=== PATIENT | male | born 1995 | race Caucasian/White ===

== ENCOUNTER 2018-07-10 12:15 | Emergency (ER) | payer BC, SELFPAY | END 2018-07-10 13:43 | disposition home or self-care (01) | LOC: ERS 12:15 | DX: S06.0X0A Concussion without loss of consciousness, initial encounter (principal); G93.0 Cerebral cysts; W22.8XXA Striking against or struck by other objects, initial encounter; Y93.23 Activity, snow (alpine) (downhill) skiing, snowboarding, sledding, tobogganing and snow tubing ==

== ENCOUNTER 2018-07-10 18:52 | Emergency (ER) | payer BC ==
[2018-07-10] MEDS ORDERED: Ondansetron PF 4 MG/2 ML Vial ONE (19:47)
[2018-07-10] MEDS ORDERED: diphenhydrAMINE 50 MG/ML VIAL ONE (20:08)
[2018-07-10] MEDS ORDERED: Fentanyl 100 MCG/2 ML VIAL ONE (20:08)
[2018-07-10] MEDS ORDERED: Metoclopramide HCl 10 MG/2 ML VIAL ONE (20:08)
[2018-07-10] MEDS ORDERED: Dexamethasone 10 MG/ML VIAL ONE (20:49)
[2018-07-10] MEDS ORDERED: Ketorolac Tromethamine 30 MG/ML VIAL ONE (20:49)
--- NOTE | 2018-07-10 20:59 | CT ---
CT OF BRAIN PERFORMED WITHOUT CONTRAST ENHANCEMENT: 07/10/18 HISTORY: Closed head injury while snowboarding. Photophobia and vomiting. There is a prominent cistern magna. It is possible that some of these changes are related to an arach noid cyst but this is not an acute process. The ventricles are normal in size. Sulci are normal in ap pearance. There is no hemorrhage or mass effect. Mastoid air cells and visualized sinuses are clear. IMPRESSION: No acute intracranial abnormality. POS: [facility]
== END 2018-07-10 23:00 | disposition home or self-care (01) ==
LOC: ERS 18:52
DX: S06.0X0A Concussion without loss of consciousness, initial encounter (principal); F17.210 Nicotine dependence, cigarettes, uncomplicated; W22.8XXA Striking against or struck by other objects, initial encounter; Y93.23 Activity, snow (alpine) (downhill) skiing, snowboarding, sledding, tobogganing and snow tubing
CPT/HCPCS: 70450; 93005; J1100; J1200; J1885; J2405; J2765; J3010

== ENCOUNTER 2018-07-11 05:54 | Inpatient (IN) | payer BC ==
[2018-07-11] MEDS ORDERED: Metoclopramide HCl 10 MG/2 ML VIAL ONE (06:27)
[2018-07-11] MEDS ORDERED: diphenhydrAMINE 50 MG/ML VIAL ONE (06:27)
[2018-07-11] MEDS ORDERED: Ondansetron PF 4 MG/2 ML Vial IVP PRN (07:28)
[2018-07-11] MEDS ORDERED: Ondansetron ODT 4 MG TAB SL PRN (07:28)
[2018-07-11] MEDS: Acetaminophen 325 MG TAB PO PRN ×2 (07:48→15:23)
[2018-07-11 07:54] VITALS: BMI 29.0
[2018-07-11 09:07] LABS: #Basophils 0.1 thou/uL (0.0-0.2); #Lymphocytes 1.5 thou/uL (1.20-3.40); #Monocytes 0.6 thou/uL (0.11-0.59); %Basophils 0.4 % (0.0-1.0); %Eosinophils 0.1 % (0.0-10.0); %Lymphocytes 11.1 % (21.0-51.0); %Monocytes 4.7 % (0.0-10.0); %Neutrophils 83.6 % (42.0-75.0); Hemoglobin 15.8 g/dL (14.0-18.0); Mean Corpuscular HGB CONC 32.4 g/dL (32.0-36.0); Mean Corpuscular Hemoglobin 29.2 pg (27.0-31.0); Mean Corpuscular Volume 90.2 fL (78.0-98.0); Mean Platelet Volume 6.8 fL (7.4-10.4); Platelet Count 281 thou/uL (130-400); RBC Distribution Width 11.7 % (11.5-14.5); Red Blood Cell (RBC) Count 5.41 mill/uL (4.70-6.10); White Blood Cell (WBC) Count 13.1 thou/uL (4.8-10.8)
[2018-07-11 09:14] LABS: ALT (SGPT) 27 U/L (8-55); AST (SGOT) 15 U/L (5-34); Albumin 4.2 g/dL (3.5-5.0); Alkaline Phosphatase 91 U/L (40-150); Anion Gap 14 mmol/L (10-20); BUN (Urea Nitrogen) 23 mg/dL (8.9-20.6); Bilirubin, Total 0.4 mg/dL (0.2-1.2); Calc. Creatinine Clearance 157 mL/min (70-130); Calcium 9.2 mg/dL (7.8-10.44); Carbon Dioxide 20 mmol/L (22-29); Chloride 109 mmol/L (98-107); Estimated GFR-MDRD Greater than 90; Globulin 2.8 g/dL (2.4-3.5); Glucose 98 mg/dL (70-105); Potassium 4.6 mmol/L (3.5-5.1); Sodium 138 mmol/L (136-145)
[2018-07-11] MEDS: Ketorolac Tromethamine 30 MG/ML VIAL IVP PRN (10:06)
[2018-07-11] MEDS: Sodium Chloride 0.9% 1,000 ML IV SCH ×3 (10:08→20:18)
[2018-07-11] MEDS ORDERED: tiZANidine HCl 4 MG TAB PO SCH (10:45)
[2018-07-11 12:42] LABS: Amphetamine Not Detected (NotDetected); Barbiturates Screen Not Detected (NotDetected); Benzodiazepine Screen Not Detected (NotDetected); Cocaine Metabolite Screen Not Detected (NotDetected); Medtox Control Line Valid? VALID (VALID); Medtox Reader # READER 4; Methadone Not Detected (NotDetected); Methamphetamine Not Detected (NotDetected); Opiate Screen Not Detected (NotDetected); Oxycodone Screen Not Detected (NotDetected); Phencyclidine (PCP) Not Detected (NotDetected); THC/Cannabinoid Screen Detected (NotDetected); Tricyclic Screen Not Detected (NotDetected)
--- NOTE | 2018-07-11 14:41 | MRI ---
MRI BRAIN WITHOUT CONTRAST: HISTORY: Postconcussive headache, intractable. CORRELATION: CT scan of the previous night. FINDINGS: No restricted diffusion is seen. No evidence of infarct, hemorrhage, or midline shift is seen. Ther e is suggestion of an arachnoid cyst in the posterior fossa with mild mass effect in the left cerebel lar hemisphere, less likely monet cisterna magna. The ventricular size is normal, and the basilar cis terns are patent. The visualized paranasal sinuses and mastoid air cells are well aerated. No tonsi llar herniation is seen. IMPRESSION: 1. No evidence of acute intracranial process. 2. Arachnoid cyst in the posterior fossa (less likely monet cisterna magna). POS: [facility]
--- NOTE | 2018-07-11 14:42 | MRI ---
MRI CERVICAL SPINE WITHOUT CONTRAST: HISTORY: Headache, neck pain. Two previous snowboarding injuries. COMPARISON: None. FINDINGS: There is T1 marrow signal hypointensity of the cervical vertebrae. Correlate for anemia or marrow in filtrative process. No significant STIR hyperintensity. Cervical spine vertebral body height is seb ntained. There is no fracture. Visualized brain parenchyma, cervicomedullary junction, cervical cord, and the upper thoracic cord medina ve a normal size and signal intensity. There is a T2 hyperintense lesion in the left posterior fossa. Refer to separate brain MRI report fo r further detail. C2-C3: No significant central canal stenosis or foraminal narrowing. C3-C4: No significant central canal stenosis or foraminal narrowing. C4-C5: No significant central canal stenosis or foraminal narrowing. C5-C6: No significant central canal stenosis or foraminal narrowing. C6-C7: No significant central canal stenosis or foraminal narrowing. C7-T1: No significant central canal stenosis or foraminal narrowing. IMPRESSION: 1. No significant central canal stenosis or foraminal narrowing. 2. T1 marrow signal hypointensity due to anemia or marrow infiltrative process. Correlate clinicall y. There is no corresponding STIR hyperintensity. POS: [facility]
--- NOTE | 2018-07-11 15:59 | PDOC.EVN ---
Event Note - Event Note Event Note: Pt seen and examined and discussed w [facility] Ms Ngozi Plan discussed w family as well MRI results shows arachnoid cyst and T1 signal hypointensity. discussed w NS and advised to get MRV .ordered as advised received call from [place] [facility] about abnl CSF Cx .Showing GN bacilli Pantoea agglomerans. will start on Meropenam.Will consult ID Pt also Bradycardia.ECHO ordered. Will follow.
[2018-07-11] MEDS ORDERED: Nortriptyline HCl 25 MG CAP PO SCH (16:00)
[2018-07-11] MEDS: MEROPENEM 1 GM/50 ML 1 GM in Premix Bag 1 BAG IVPB SCH (16:41)
--- NOTE | 2018-07-11 17:32 | MRI ---
MR VENOGRAM 07/11/18 HISTORY: Abnormal MRI. COMPARISON: None. CORRELATION: Brain MRI 07/11/18. TECHNIQUE: Coronal 2D [id number] imaging is submitted for interpretation. Maximum intensity projection image s are submitted for interpretation. FINDINGS: An appropriate flow related signal in the sagittal sinus, internal cerebral veins, straight sinus, ve in of Kelvin, bilateral transverse sinuses and sigmoid sinuses. IMPRESSION: No MR evidence of internal cranial venous sinus thrombosis. POS: [facility]
[2018-07-11] MEDS ORDERED: Acetaminophen/Codeine 30-300mg Tablet PO PRN (20:05)
[2018-07-11] MEDS: tiZANidine HCl 4 MG TAB PO SCH (20:16)
[2018-07-11] MEDS: Acetaminophen/Codeine 30-300mg Tablet PO PRN (20:16)
[2018-07-12] MEDS: MEROPENEM 1 GM/50 ML 1 GM in Premix Bag 1 BAG IVPB SCH (00:08)
[2018-07-12] MEDS: Ketorolac Tromethamine 30 MG/ML VIAL IVP PRN ×2 (03:30→13:12)
[2018-07-12] MEDS: Sodium Chloride 0.9% 1,000 ML IV SCH ×2 (04:07→13:20)
[2018-07-12 04:32] VITALS: TEMP 98
[2018-07-12 06:43] LABS: #Basophils 0.1 thou/uL (0.0-0.2); #Eosinphils 0.1 thou/uL (0.0-0.7); #Lymphocytes 3.2 thou/uL (1.20-3.40); #Monocytes 0.6 thou/uL (0.11-0.59); #Neutrophils 4.5 thou/uL (1.40-6.50); %Basophils 0.6 % (0.0-1.0); %Eosinophils 0.7 % (0.0-10.0); %Lymphocytes 37.9 % (21.0-51.0); %Monocytes 7.2 % (0.0-10.0); %Neutrophils 53.6 % (42.0-75.0); Hemoglobin 15.6 g/dL (14.0-18.0); Mean Corpuscular HGB CONC 32.8 g/dL (32.0-36.0); Mean Corpuscular Hemoglobin 29.8 pg (27.0-31.0); Mean Corpuscular Volume 90.9 fL (78.0-98.0); Mean Platelet Volume 6.2 fL (7.4-10.4); Platelet Count 246 thou/uL (130-400); RBC Distribution Width 11.9 % (11.5-14.5); Red Blood Cell (RBC) Count 5.22 mill/uL (4.70-6.10); White Blood Cell (WBC) Count 8.4 thou/uL (4.8-10.8)
[2018-07-12 07:06] LABS: ALT (SGPT) 24 U/L (8-55); AST (SGOT) 13 U/L (5-34); Alkaline Phosphatase 85 U/L (40-150); Anion Gap 11 mmol/L (10-20); BUN (Urea Nitrogen) 14 mg/dL (8.9-20.6); Bilirubin, Total 0.5 mg/dL (0.2-1.2); Calc. Creatinine Clearance 133 mL/min (70-130); Calcium 9.3 mg/dL (7.8-10.44); Carbon Dioxide 26 mmol/L (22-29); Chloride 106 mmol/L (98-107); Estimated GFR-MDRD 87; Globulin 2.4 g/dL (2.4-3.5); Glucose 87 mg/dL (70-105); Potassium 4.2 mmol/L (3.5-5.1); Protein, Total 6.4 g/dL (6.0-8.3); Sodium 139 mmol/L (136-145)
[2018-07-12] MEDS: Acetaminophen/Codeine 30-300mg Tablet PO PRN ×2 (08:40→16:55)
[2018-07-12] MEDS: tiZANidine HCl 4 MG TAB PO SCH (08:41)
--- NOTE | 2018-07-12 08:45 | HP ---
PRIMARY CARE PHYSICIAN: None. CHIEF COMPLAINT: Intractable headache after closed head injury last and Monday. HISTORY OF PRESENT ILLNESS: Mr. Stiles is a 23-year-old male, who presents to the emergency room once on the and once on the for a headache, which started on Monday. The patient reports he was snowboarding in [place] and fell and hit his head and Monday. He reports that he might have had some loss of consciousness on , but did not have any ill effects and he went snowboarding again on Monday and fell again. He said also hit his head, did not himself found having a loss of consciousness. He denied any dizziness, changes to vision, nausea, or headache until Monday. Reports that he had gotten up to have a bowel movement and in the middle of the bowel movement, he said he had significant onset of headache. Reports that he became a little disoriented, some change in vision, was unsteady on his feet, so they called the EMS ambulance and they took him to the local hospital. There, they did a CT scan of his head and an LP and sent him to [place], where he said no further workup was done and then family drove him back to [place] Monday night Monday. Reports that he had a headache yesterday afternoon, came to the ER originally at 1219 hours, was seen again on 07/10 at 1853 hours and then returned on 07/11 at 6 o'clock for residual headache. Reports that it is an initial visit that did get better after he was given a headache protocol. The CT scan that was done yesterday showed no acute process, was told by Dr. Krishnamurthy in the ER that if his headache did not go away or he had any worsening symptoms to return to the ER, which he did early this morning and was admitted at that point for further workup. He reports he had some nausea yesterday with a headache, but they had given him some medication in the ER and he was feeling better. He reports some phonophobia and photophobia. Denies any vomiting. He reports that he had some transient issues with bradycardia in [place]. Pulse while he was in the emergency room 48 to 60, pulse when he was admitted was 46. The patient was admitted to the medical floor for additional management. PAST MEDICAL HISTORY: None. PAST SURGICAL HISTORY: Had to have a testicle surgically repaired after it did not descend on its own when he was an infant. FAMILY HISTORY: Diabetes and some heart disease. PSYCHIATRIC HISTORY: None. SOCIAL HISTORY: Lives with his family. He reports that he does drink socially. He does smoke cigarettes. He smokes about half a pack a day and has smoked for 10 years. He does report that he smokes marijuana on a regular basis. ALLERGIES: NONE. CURRENT MEDICATIONS: None. REVIEW OF SYSTEMS: CONSTITUTIONAL: Denies fever. Denies chills. EYES: Reports photophobia. Denies intermittent blurry vision. ENT: Denies any sore throat or rhinorrhea. CARDIOVASCULAR: Denies any chest pain or palpitations. RESPIRATORY: Denies any shortness of breath or any cough. GI: Does report some nausea. Reports episode of vomiting earlier in the week. : Denies any dysuria or hematuria. MUSCULOSKELETAL: Does report some generalized back pain, nothing focal. Does report some neck pain when moving. Does report a headache. SKIN: Denies any rash or changes. NEUROLOGIC: Does report a headache, describes at the back of his head and moves forward. Reports some dizziness. ENDOCRINE: Denies any changes. PSYCHIATRIC: Denies any SI or HI. Denies any depression or anxiety. Notes all other systems are reviewed and negative on those mentioned above or in the HPI. PHYSICAL EXAMINATION: VITAL SIGNS: Blood pressure 136/86, pulse 48, respirations 17, temperature 98.1, and SpO2 of 98% on room air. CONSTITUTIONAL: The patient is alert and oriented to person, place, and time. HEENT: Head; no Tapia sign or raccoon sign. Normocephalic. No step-off. Eyes; eyelids are normal to inspection. Pupils are equally round and reactive to light. There is some mild nystagmus. ENT, mouth exam is normal. Mucous membranes are moist. NECK: Has a normal range of motion. Trachea is midline. Does report tenderness to posterior cervical spine on palpation. No step-off is noted. He does report some pain with neck movement. RESPIRATORY/CHEST: No respiratory distress. Breath sounds are clear. CARDIOVASCULAR: Heart rate regular rate and rhythm. Heart sounds are normal. ABDOMEN: Nontender. Bowel sounds are heard. BACK: Normal inspection. Normal range of motion. Has some diffuse tenderness. No bruising is noted. Does have some midline tenderness of the cervical spine. Also has paraspinal cervical muscle tenderness on palpation. EXTREMITIES: Upper extremity; normal range of motion. Inspection is normal. Motor strength is normal. Sensation intact. Radial pulses equal bilaterally. Lower extremity; normal inspection. Normal range of motion. Motor strength is normal. Sensation intact. Pedal pulses equal bilaterally. NEUROLOGIC: The patient is oriented to person, place, and time. Speech is normal. Gait is normal. Cranial nerves 2 through 12 are grossly intact. SKIN: Warm, dry, and normal in color. PSYCHIATRIC: Normal affect. IMAGING DATA: EKG in the emergency room shows sinus cami at [address] segments and T-waves are normal. [place] is normal. PERTINENT LABORATORY DATA: White blood cell count is 13.1, hemoglobin 15.8, hematocrit 48.8, platelet count is 281. Chemistry with sodium 138, potassium 4.6, chloride is 109, carbon dioxide is 20, gap is 14, BUN is 23, creatinine is 0.88, GFR is 90, glucose 98, and calcium 9.2. Liver enzymes are unremarkable. Brain CT, that was done on 05/09 shows a prominent cisterna magna. Ventricles are normal in size. No acute intracranial abnormality. ASSESSMENT AND PLAN: 1. Intractable headache related to postconcussive syndrome. We will obtain an MRI of the brain. Order IV fluids. Pain medication as needed. 2. Cervical pain. We will add an MRI of the cervical spine. 3. We will provide gastrointestinal and deep venous thrombosis prophylaxis while here. We will ask Neurology to consult related to #1. Case was discussed with Dr. Ridley, she agrees to plan. All other hospital course will depend on clinical findings. Job ID: [id number]
[2018-07-12 10:49] VITALS: BP 127/74
--- NOTE | 2018-07-12 11:54 | CON ---
DATE OF CONSULTATION: 07/11/2018 REASON FOR CONSULTATION: Possible meningitis. HISTORY OF PRESENT ILLNESS: A 23-year-old has a history of alcohol abuse and on vacation in [place] while snowboarding, sustained two falls with two head injuries. He was evaluated in the local emergency room for headaches, had a spinal tap, which showed some abnormalities and eventually came to the [facility] Emergency Room and probably returned to his home, because of persistence of headaches. Denies any fever and no visual symptoms, some nausea but no vomiting. No respiratory symptoms or abdominal pain. No genitourinary symptoms. No joint symptoms or skin disorder. The patient had an imaging studies completed those included a brain MRI. It showed arachnoid cyst in the posterior fossa. He had a brain MRA completed, which showed no venous sinus thrombosis. Cervical spine MRI did show nl results. Currently, he is complaining of pain in the occipital area. He has taken Toradol, but that has not helped. He is quite alert, bit cantankerous. REVIEW OF SYSTEMS: As above. PAST MEDICAL HISTORY: Remarkable for alcohol abuse history. No other history. PAST SURGICAL HISTORY: He had some testicle surgery during childhood. SOCIAL HISTORY: He drinks sometimes heavily. He smokes daily. ALLERGIES: NONE. MEDICATIONS: He had not been on any medications. Currently, he has been on meropenem p.r.n. medications. PHYSICAL EXAMINATION: VITAL SIGNS: His vital signs have been normal. He is afebrile. GENERAL: Awake, alert, and oriented. SKIN: Normal. No lymphadenopathy. HEENT: Showed normal ocular movements. Sclerae are white. Pupils equal. Nasal passages are patent. Teeth in good shape. NECK: Supple. No jugular venous distention. No thyromegaly. LUNGS: Symmetric and clear breath sounds. HEART: S1 and S2. Regular rate. No S3 or S4. ABDOMEN: Soft, not distended or tender. No ascites. No bladder distention. EXTREMITIES: Plantar responses are flexor. Strength in upper and lower extremities, 5/5. No clonus. Cognitive function appears to be intact. LABORATORY DATA: White cell count mild elevation, platelets 281 with 82% neutrophils chemistry is essentially normal. Toxicology with cannabinoids detected. Microbiology, no results from [facility]. From [place], there is a CSF, which showed 4 WBCs, 5 RBCs, protein and glucose wnl. ASSESSMENT: Injuries while snowboarding with head concussion that could possibly an arachnoid cyst and findings in the CSF described above. The findings in the CSF do not represent meningitis. Does not have clinical or laboratory evidence to suggest meningitis. The Pantoea isolate represent contaminantion of the sample. Recommend discontinuation of antibiotic therapy as well as droplet precautions. Job ID: [id number] [facility]
--- NOTE | 2018-07-12 12:10 | PDOC.PN ---
- Subjective Encounter Start Date: 07/12/18 Encounter Start Time: 07:40 Subjective: c/o occipital area headache -: no nausea, vomiting or abd pain -: no weakness in extremities or visual symptoms now - Objective MAR Reviewed: Yes Vital Signs & Weight: Vital Signs (12 hours) Temp Pulse Resp BP Pulse Ox 07/12/18 10:46 98.0 F 63 16 127/74 99 07/12/18 08:00 98 07/12/18 04:07 98.0 F 64 16 128/71 98 Weight Weight 191 lb 3.2 oz I&O: 07/11/18 07/12/18 07/13/18 06:59 06:59 06:59 Intake Total 1382 Balance 1382 Result Diagrams: 07/12/18 06:20 07/12/18 06:20 Phys Exam - Physical Examination HEENT: PERRLA, moist MMs Neck: no JVD, supple Respiratory: no wheezing, no rales Cardiovascular: RRR, no significant murmur Gastrointestinal: soft, non-tender, positive bowel sounds Musculoskeletal: no edema, pulses present Neurological: non-focal, moves all 4 limbs Psychiatric: normal affect, A&O x 3 Dx/Plan (1) Meningitis Code(s): G03.9 - MENINGITIS, UNSPECIFIED Status: Suspected Comment: likely contaminant (2) Headache Code(s): R51 - HEADACHE Status: Acute Qualifiers: Headache type: unspecified Intractability: intractable (3) Concussion Code(s): S06.0X9A - CONCUSSION W LOSS OF CONSCIOUSNESS OF UNSP DURATION, INIT Status: Suspected Qualifiers: Encounter type: subsequent encounter Loss of consciousness presence/ duration: without LOC Qualified Code(s): S06.0X0D - Concussion without loss of consciousness, subsequent encounter (4) Mild tetrahydrocannabinol (THC) abuse Code(s): F12.10 - CANNABIS ABUSE, UNCOMPLICATED Status: Acute - Plan is off antibiotics per Dr.Lemos moreland -: will check his lab reports from [facility] shortly -: no sign of meningitis based on csf results -: is on toradol, zanaflex and nortriptyline -: may dc home if headache resolves and he starts amb/eating * . Review of Systems - Medications/Allergies Allergies/Adverse Reactions: Allergies Allergy/AdvReac Type Severity Reaction Status Date / Time No Known Allergies Allergy Verified 07/11/18 07:43 Medications: Current Medications Acetaminophen/Codeine Phosphate (Tylenol #3) 1 tab PO Q6H PRN PRN Reason: Mild-Mod Pain (1-5)/HEADACHE Acetaminophen/Codeine Phosphate (Tylenol #3) 2 tab PO Q6H PRN PRN Reason: Mod to Sev Pain (6-10)/HEADACH Last Admin: 07/12/18 08:40 Dose: 2 tab Sodium Chloride (Normal Saline 0.9%) 1,000 mls @ 100 mls/hr IV .Q10H [facility] Last Admin: 07/12/18 04:07 Dose: Not Given Ketorolac Tromethamine (Toradol) 15 mg IVP Q6H PRN PRN Reason: Pain Stop: 07/16/18 07:59 Last Admin: 07/12/18 03:30 Dose: 15 mg Nortriptyline HCl (Pamelor) 25 mg PO HS [facility] Sodium Chloride (Flush - Normal Saline) 10 ml IVF Q12HR [facility] Last Admin: 07/12/18 08:44 Dose: Not Given Sodium Chloride (Flush - Normal Saline) 10 ml IVF PRN PRN PRN Reason: Saline Flush Tizanidine HCl (Zanaflex) 4 mg PO BID [facility] Last Admin: 07/12/18 08:41 Dose: 4 mg
[2018-07-12] MEDS ORDERED: Nortriptyline HCl 25 MG CAP PO SCH (21:00)
--- NOTE | 2018-07-12 23:38 | CON ---
DATE OF CONSULTATION: 07/12/2018 CONSULTING PHYSICIAN: Hospitalist Service. IMPRESSION: Postconcussive syndrome. PLAN: 1. Pamelor 25 mg at bedtime. 2. Tylenol 3 as needed for pain. 3. Office followup as needed. HISTORY OF PRESENT ILLNESS: Mr. Stiles is a 23-year-old man who was injured while snowboarding. He hit his head on one day of skiing. The following day, he went out again and struck his head again. He decided to take it easy the 3rd day and got drunk. He again drove himself back from [place] and has noted some continued ongoing headache. The headache is intensified by having a bowel movement. There is some intermittent dizziness. He also notes that his processing speed has definitely slowed down. He also feels a bit irritable. He has never had concussions before. He has had MRI of the brain and MRV, both of which were normal. Lumbar puncture was performed in [place] and there was a contaminant found in the culture. He was cleared by Infectious Disease last night. He has been able to walk the halls today and able to tolerate movement better, although he is still a bit dizzy. PAST MEDICAL HISTORY: Otherwise negative. ALLERGIES: NONE REPORTED. SOCIAL HISTORY: Positive for alcohol. No illicit drugs known. FAMILY HISTORY: Noncontributory. MEDICATION LIST: None. REVIEW OF SYSTEMS: Ten system review of systems otherwise unremarkable. PHYSICAL EXAMINATION: GENERAL: He is a healthy-appearing young man in no acute distress. VITAL SIGNS: Stable. He is afebrile. HEENT: Pupils are equal. Conjunctivae clear. Oropharynx clear. NECK: Supple. EXTREMITIES: No cyanosis, clubbing, or edema. NEUROLOGIC: He is alert and appropriate. His speech is fluent and clear. His exam is nonfocal. He has no abnormal movements. He can walk independently. He had a slightly positive [place]. IMAGING: Reviewed. SUMMARY: He is a young man with a concussion. I am going to start him on Pamelor and continue analgesics for now. Hopefully, the situation will improve shortly. I have advised him he could follow up in the office, if needed. Job ID: [id number]
--- NOTE | 2018-07-13 09:52 | DIS ---
DATE OF ADMISSION: 07/11/2018 DATE OF DISCHARGE: 07/12/2018 DISCHARGE DISPOSITION: Home. PRIMARY DISCHARGE DIAGNOSIS: Headache with postconcussive syndrome, marijuana use. PROCEDURES DONE DURING HOSPITALIZATION: MRI brain without contrast showed no evidence of acute intracranial process, arachnoid cyst in the posterior foci less likely monet cisterna magna. MRI cervical spine without contrast done showed no significant central canal stenosis or foraminal narrowing. Brain MR venogram done showed no evidence of internal cranial venous sinus thrombosis. Echo with 2D Doppler showed EF of 50% to 55%, had a white count of 8 on the day of discharge with H and H of 15 and 47, MCV 19, platelet count 246. Liver enzymes within normal limits. Albumin 4, BUN 14, creatinine 1.0. Urine drug screen was positive for cannabinoids. DISCHARGE MEDICATION: Tylenol No. 3 q.6 hourly p.r.n. for pain. DISCHARGE PLAN: The patient to follow up with Dr. Schaffer in 2 weeks and primary care physician in 1 week. BRIEF COURSE DURING HOSPITALIZATION: The patient apparently was skiing in [place] and fell twice with closed head injury on last and Monday. He drove himself from there to this area. The patient complained of headache. He also had gone to the emergency room in [place] where he had lumbar puncture done. His CSF findings in tube number two did not reveal any signs of infection. He apparently grew a contaminant growing gram-negative bacilli Pantoea agglomerans. He was evaluated by Dr. Simental and was cleared of any infection including meningitis. He was also evaluated by Dr. Schaffer for Neurology. He is ambulating and eating well prior to discharge. The patient likely has post concussive headache. He has been advised to be off work for at least a week and until cleared by his primary care physician. He is wanting to go home today and has been cleared by Neurology. Please see a [id number] documentation for the day of discharge on [place]. Job ID: [id number] [facility]
== END 2018-07-12 18:20 | disposition home or self-care (01) | DRG 103 ==
LOC: ERS 05:54 → OBSVTOIN 06:27 → T4-B 06:27
PROVIDERS: ADMIT Internal Medicine; ATTEND Internal Medicine
DX: G44.311 Acute post-traumatic headache, intractable (principal); F07.81 Postconcussional syndrome; F12.10 Cannabis abuse, uncomplicated
CPT/HCPCS: 36415; 70450; 70544; 70551; 72141; 80053; 80306; 85025; 93005; 93306; J1100; J1200; J1885; J2185; J2405; J2765; J3010